=== PATIENT | female | born 2005 | race Two or more races ===

== ENCOUNTER 2024-09-21 18:48 | Emergency (ER) | payer OTHER ==
[2024-09-21] MEDS ORDERED: Ibuprofen 800 MG TAB ONE (20:30)
[2024-09-21 21:00] LABS: #Basophils 0.04 10x3/uL (0.0-0.2); %Basophils 0.4 % (0.0-1.0); %Eosinophils 2.7 % (0.0-10.0); %Lymphocytes 26.8 % (28.0-48.0); %Monocytes 8.5 % (0.0-4.0); %Neutrophils 61.3 % (31.0-61.0); Hematocrit 37.2 % (36.0-47.0); Hemoglobin 12.2 g/dL (12.0-16.0); Mean Corpuscular HGB CONC 32.8 g/dL (32.0-36.0); Mean Corpuscular Hemoglobin 29.1 pg (25.0-35.0); Mean Corpuscular Volume 88.8 fL (78.0-98.0); Mean Platelet Volume 11.9 fL (7.4-10.4); Platelet Count 216 10x3/uL (130-400); RBC Distribution Width 12.9 % (11.5-14.5); Red Blood Cell (RBC) Count 4.19 mill/uL (4.00-5.20)
[2024-09-21 21:15] LABS: ALT (SGPT) 28 U/L (Less than 34); AST (SGOT) 25 U/L (11-34); Albumin 3.4 g/dL (3.1-4.5); Alkaline Phosphatase 82 U/L (40-100); Anion Gap 12 mmol/L (10-20); BUN (Urea Nitrogen) 9 mg/dL (7.0-18.7); Bilirubin, Total 0.2 mg/dL (0.3-1.2); Calc. Creatinine Clearance 0 mL/min (70-130); Calcium 8.7 mg/dL (7.8-10.44); Carbon Dioxide 26 mmol/L (22-29); Chloride 105 mmol/L (98-107); Estimated GFR 132; Globulin 3.7 g/dL (2.4-3.5); Glucose 112 mg/dL (70-105); Protein, Total 7.1 g/dL (6.0-8.3); Sodium 139 mmol/L (136-145)
[2024-09-21 21:20] LABS: Troponin I Less than 0.010 ng/mL (< 0.028)
== END 2024-09-21 21:53 | disposition home or self-care (01) ==
LOC: ERS 18:48
DX: M94.0 Chondrocostal junction syndrome [Tietze] (principal)
CPT/HCPCS: 36415; 71046; 80053; 84484; 85025; 85379; 93005